=== PATIENT | female | born 1955 | race Caucasian/White ===

== ENCOUNTER 2018-03-22 07:27 | Day surgery (SDC) | payer BC ==
[~2018-03-22 07:27] MED LIST: Lactated Ringers 1,000 ML IV SCH
[2018-03-22] MEDS ORDERED: Ketorolac 10 MG Tab PO PRN (08:00)
[2018-03-22] MEDS ORDERED: ceFAZolin 2 GM in Premix Bag 1 BAG IV SCH (08:00)
[2018-03-22] MEDS ORDERED: fentaNYL 250 MCG/5 ML SDV ONE (09:16)
[2018-03-22] MEDS ORDERED: Lidocaine 2% 5 ML SDV ONE (09:16)
[2018-03-22] MEDS ORDERED: Midazolam 1 MG/ML 2 ML SDV ONE (09:16)
[2018-03-22] MEDS ORDERED: Propofol 200 MG/20 ML SDV ONE (09:16)
[2018-03-22] MEDS ORDERED: Lidocaine 1% 20 ML MDV ONE (09:53)
--- NOTE | 2018-03-22 09:54 | PCM.PREANE ---
Preanesthetic Assessment - Procedure Proposed Procedure: Knee arthroscopy with menisectomy and tibial plateau fracture treatment - Anesthesia/Transfusion/Family Hx Anesthesia History: Prior Anesthesia Without Reaction Transfusion History: No Prior Transfusion(s) Additional History: stated nausea after hysterectomy and awoke aat extubation with another procedure - Review of Systems General: Other (Obestiy) Pulmonary: Other (asthma with environmental exposures particularly smoke) Cardiovascular: Other (HTN - treated) Gastrointestinal: No Symptoms Neurological: Gait Disturbance (due to pain in knee (left)) Other: Reports: Thyroid Problems (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) - Physical Assessment NPO Status Date: 03/21/18 NPO Status Time: 23:00 O2 Sat by Pulse Oximetry: 98 Respiratory Rate: 16 Vital Signs: Last Vital Signs Temp 99.0 F 03/22/18 07:30 Pulse 88 03/22/18 07:30 Resp 16 03/22/18 07:30 BP 144/99 H 03/22/18 07:30 Pulse Ox 98 03/22/18 07:30 Height: 5 ft 5 in Weight: 230 lb ASA Class: 3 Mental Status: Alert & Oriented x3 Airway Class: Mallampati = 1 Dentition: Reports: [place](s) Thyro-Mental Finger Breadths: 3 Mouth Opening Finger Breadths: 3 (beefy oropharynx/tongue) ROM/Head Extension: Limited/Partial (short neck) Lungs: Clear to Auscultation, Normal Respiratory Effort Cardiovascular: Regular Rate, Regular Rhythm, No Murmurs - Allergies Allergies/Adverse Reactions: Allergies Allergy/AdvReac Type Severity Reaction Status Date / Time Sulfa (Sulfonamide Allergy Nausea and Verified 03/17/18 10:40 Antibiotics) Vomiting - Blood Blood Available: No Product(s) Available: None - Anesthesia Plan Pre-Op Medication Ordered: None - Acknowledgements Anesthesia Type Planned: General Anesthesia (LMA) Pt an Appropriate Candidate for the Planned Anesthesia: Yes Alternatives and Risks of Anesthesia Discussed w Pt/Guardian: Yes Pt/Guardian Understands and Agrees with Anesthesia Plan: Yes PreAnesthesia Questionnaire HEENT History: Reports: Hard of Hearing Other HEENT History: wears glasses, has fernanda hearing aids Cardiovascular History: Reports: Other (See Below) Other Cardiovascular History: edema to lower extremities Respiratory History: Reports: Asthma Gastrointestinal History: Reports: GERD Genitourinary History: Reports: None [employer]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: Musculoskeletal History: Reports: Arthritis, Fracture Other Musculoskeletal History: hx fx rt ankle and left arm, rt shoulder pain due to torn rotator cuff Neurological History: Reports: Concussion Endocrine/Metabolic History: Reports: Obesity/BMI 30+, Other (See Below) Other Endocrine/Metabolic History: enlarged thyroid - Past Surgical History Head Surgeries/Procedures: Reports: None HEENT Surgical History: Reports: Tonsillectomy GI Surgical History: Reports: Hernia, Abdominal, Other (See Below) Other GI Surgeries/Procedures: hx umbilical hernia repair Female Surgical History: Reports: Hysterectomy, Tubal Ligation, Other (See Below) Other Female Surgeries/Procedures: hysterectomy with bladder sling Musculoskeletal Surgical History: Reports: Arthroscopic Knee - SUBSTANCE USE Smoking Status *Q: Never Smoker Recreational Drug Use History: No - HOME MEDS Home Medications: Home Meds Albuterol Sulfate [Proair Hfa] 1 - 2 puff INH ASDIRECTED PRN 03/17/18 [History] Budesonide/Formoterol Fumarate [Symbicort 160-4.5 Mcg Inhaler] 1 puff INH BID [History] Hydrochlorothiazide 25 mg PO DAILY 03/17/18 [History] Potassium Chloride 20 meq PO DAILY 03/17/18 [History] - CURRENT (IN HOUSE) MEDS Current Meds: Current Medications Hydrocodone Bitart/Acetaminophen ([place] 325-10 Mg) 1 - 2 tab PO Q4H PRN PRN Reason: Pain Cefazolin Sodium/Dextrose 2 gm (/ Premix) 50 mls @ 100 mls/hr IV ONCALL NIKKY Lactated Ringer's (Ringers, Lactated) 1,000 mls @ 100 mls/hr IV ASDIRECTED [facility] Last Admin: 03/22/18 08:20 Dose: 100 mls/hr Ketorolac Tromethamine (Toradol) 10 mg PO Q6H PRN PRN Reason: Pain Stop: 03/27/18 08:01 Discontinued Medications Fentanyl (Sublimaze) Confirm Administered Dose 250 mcg .ROUTE .STK-MED ONE Stop: 03/22/18 09:17 Cefoxitin Sodium (Mefoxin In Dextrose,Iso-Osm 2 Gm/50 Ml) Confirm Administered Dose 50 mls @ as directed .ROUTE .STK-MED ONE Stop: 03/22/18 09:18 Lidocaine (Xylocaine-Mpf 2%) Confirm Administered Dose 10 ml .ROUTE .STK-MED ONE Stop: 03/22/18 09:17 Midazolam HCl (Versed 1 Mg/Ml) Confirm Administered Dose 2 mg .ROUTE .STK-MED ONE Stop: 03/22/18 09:17 Propofol (Diprivan 20 Ml) Confirm Administered Dose 400 mg .ROUTE .STK-MED ONE Stop: 03/22/18 09:17
[2018-03-22] MEDS ORDERED: Ondansetron 4 MG/2 ML SDV ONE (10:51)
[2018-03-22] MEDS ORDERED: fentaNYL 100 MCG/2 ML SDV IVPUSH PRN (11:13)
--- NOTE | 2018-03-22 12:06 | PCM.OPNOTE ---
- General Post-Op/Procedure Note Date of Surgery/Procedure: 03/22/18 Operative Procedure(s): L knee scope with PLM/PMM and arthroscopically aided treatment of tibial plateau fracture Condition: Good Free Text/Narrative:: tt=44 min #[id number]
--- NOTE | 2018-03-22 12:47 | PCM.POSTAN ---
POST ANESTHESIA ASSESSMENT - MENTAL STATUS Mental Status: Alert, Oriented Free Text/Narrative:: Sleepy but stable. OK for phase II. - VITAL SIGNS Blood Pressure: 139/85 - RESPIRATORY Respiratory Status: Respiratory Rate WNL, Airway Patent, O2 Saturation Stable - CARDIOVASCULAR CV Status: Pulse Rate WNL, Blood Pressure Stable - GASTROINTESTINAL GI Status: No Symptoms - POST OP HYDRATION Hydration Status: Adequate & Stable
[2018-03-22] MEDS: Acetaminophen/HYDROcodone 325-10 MG Tab PO PRN ×2 (13:07→15:00)
--- NOTE | 2018-03-22 13:20 | OR ---
SURGEON: Celia Pina MD DATE OF PROCEDURE: 03/22/2018 PREOPERATIVE DIAGNOSES: 1. Left knee degenerative joint disease. 2. Left knee medial and lateral meniscus tear. 3. Left knee medial tibial plateau insufficiency fracture. POSTOPERATIVE DIAGNOSES: 1. Left knee degenerative joint disease. 2. Left knee medial and lateral meniscus tear. 3. Left knee medial tibial plateau insufficiency fracture. PROCEDURE: Left knee arthroscopy with partial medial and lateral meniscectomy, and arthroscopically-aided treatment of tibial plateau fracture. ORGANIC CHEMISTRY TEACHER: 1. Anna Hernadez PA-C. 2. Alex Moralez MD, PGY-2. ANESTHESIA: General. ESTIMATED BLOOD LOSS: 5 mL. TOURNIQUET TIME: 44 minutes. COMPLICATIONS: None. DVT PROPHYLAXIS: Not indicated. IMPLANTS USED: 3 mL of AccuFill. BRIEF HISTORY: Angie is a 62-year-old female, who has had complaint of progressive left knee pain. An MRI did show evidence of tricompartmental degenerative changes along with increased bone edema along the medial tibial plateau consistent with an insufficiency fracture. Tearing of the medial and lateral meniscus was also noted. At that time, she continued to have point tenderness directly over the medial tibial plateau. She had failed a trial of conservative treatment including limited weightbearing. Due to her lack of response to conservative treatment, I did recommend surgical intervention. The risks and goals of the procedure were discussed with the patient and were documented preoperatively. She agreed to proceed. DESCRIPTION OF PROCEDURE: The patient was properly identified and brought to the operating room. She was transferred from the OR cart and placed on the operating table in supine position. General anesthesia was administered. After adequate anesthesia was obtained, a well-padded tourniquet was applied to the left lower extremity. The left lower extremity was then prepped in standard fashion using ChloraPrep solution. It was then sterilely draped. A time-out was performed to ensure correct site and procedure. Preoperative antibiotics were given. The surgical site had been marked preoperatively. An Esmarch was used to exsanguinate the left lower extremity, and the tourniquet was inflated to 250 mmHg. A lateral portal arthrotomy was established. Blunt trocar and cannula were introduced into the suprapatellar pouch. Camera, inflow, and outflow were assembled. No significant synovitis was noted. The patellofemoral joint was then visualized. 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 The trochlea also showed evidence of grade 2 to grade 3 degenerative changes. The patella appeared to track centrally. I then extended of lateral and medial gutter. No loose bodies were identified. I then entered the medial compartment. A medial portal arthrotomy was established. A blunt probe was inserted. She was found to have a radial tear of the posterior horn of the medial meniscus. Using a combination of biters and shaver, this was resected back to a stable remnant. It was again probed and found to be stable. She did have grade 3 to grade 4 chondromalacia along the medial tibial plateau, which was more apparent along the posterior aspect of the medial tibial plateau. Grade 3 chondromalacia was also noted along the weightbearing surface of the medial femoral condyle. I then entered the notch. Both the ACL and PCL were visualized and probed and found to be intact. I then entered the lateral compartment. Degenerative fraying was noted along the central portion of the meniscus. It was probed and was found to be somewhat unstable. Using a combination of biters and shaver, a partial lateral meniscectomy was also performed. The meniscus was again probed and found to be stable. She did have an area of grade 4 chondromalacia measuring approximately 5 mm x 5 mm over the medial portion of the lateral tibial plateau. The remainder of the tibial plateau showed diffuse grade 3 changes. Grade 2 degenerative changes were noted along the lateral femoral condyle. The instruments were then removed from the knee. We elected to proceed with the arthroscopically-aided treatment of the tibial plateau fracture. A large cannulated needle was positioned along the medial tibial plateau. The site of the treatment was determined by preoperative MRI. The needle was positioned in both the AP and lateral planes using C-arm fluoroscopy. It was then advanced. I elected to advance just past the midline and that seem to be the area of most edema on the MRI scan. The side port cannula was then positioned in a medial trajectory, and the AccuFill was inserted. The AccuFill was equally distributed along the medial and lateral aspect of the needle. The needle was then pulled into a slightly anterior position and additional AccuFill was injected in a similar fashion. We did observe the filling using C-arm fluoroscopy, which showed a nice blush around the needle consistent with AccuFill insertion. The cannulated needle was then left in place as the AccuFill was allowed to harden. This was left in place for 10 minutes. I then used the arthroscopy camera to re-enter the medial joint space to make sure there was not been any extravasation of the AccuFill into the joint. None was visualized. The portal sites were closed with 3-0 nylon. 1% lidocaine was injected along the portal tracts. The cannulated needle was removed at the 10 minute point. A simple suture was used to close the needle port. The tourniquet was then deflated. Xeroform gauze was placed over the wound and a bulky dressing was applied. She was awakened from her anesthetic and was transferred back to the operating room cart. She was brought to recovery room in stable condition. All needle and sponge counts were correct. CICI / JIAN /[id number]
--- NOTE | 2018-03-22 14:55 | PCM48HPAN ---
Post Anesthesia Note - EVALUATION WITHIN 48HRS OF ANESTHETIC Vital Signs in Normal Range: Yes Patient Participated in Evaluation: Yes Respiratory Function Stable: Yes Airway Patent: Yes Cardiovascular Function Stable: Yes Hydration Status Stable: Yes Pain Control Satisfactory: Yes Nausea and Vomiting Control Satisfactory: Yes Mental Status Recovered: Yes Resp Rate: 12 Blood Pressure: 139/85 - COMMENTS/OBSERVATIONS Free Text/Narrative:: Pt awake and in no apparent distress. Pt denies any nausea at this time and states pain control is tolerable. No apparent anesthesia complications.
--- NOTE | 2018-03-22 16:15 | CR ---
EXAMINATION: Left knee HISTORY: Arthroscopy COMPARISON: MRI dated 03/02/2018 TECHNIQUE: 3 images provided FINDINGS/IMPRESSION: Operative control films demonstrate instrumentation projecting over the medial f emoral condyle.
== END 2018-03-22 15:30 | disposition home or self-care (01) ==
LOC: MW.SDS 07:27
PROVIDERS: ATTEND Orthopaedic Surgery
DX: S82.142A Displaced bicondylar fracture of left tibia, initial encounter for closed fracture (principal); S83.242A Other tear of medial meniscus, current injury, left knee, initial encounter; M17.12 Unilateral primary osteoarthritis, left knee; M94.262 Chondromalacia, left knee; I10 Essential (primary) hypertension; J45.909 Unspecified asthma, uncomplicated; K21.9 Gastro-esophageal reflux disease without esophagitis; M19.90 Unspecified osteoarthritis, unspecified site; E66.9 Obesity, unspecified; Z68.38 Body mass index [BMI] 38.0-38.9, adult; Z79.51 Long term (current) use of inhaled steroids; Z79.899 Other long term (current) drug therapy; Z88.2 Allergy status to sulfonamides
CPT/HCPCS: 29856; 29880; 76000; A9270; J2250; J2405; J3010; J7120; 88304; J2704